=== PATIENT | female | born 1975 ===

== ENCOUNTER → 2017-01-18 | Outpatient (REF) ==
--- NOTE | 2017-01-18 13:38 | REP ---
Clinical: Pain and disability. Technique: AP, lateral, cone down views of the lumbosacral spine. Findings: Alignment and lordosis maintained. Vertebral bodies are intact. No acute fracture / compression injury or subluxation. Disc spaces appear relatively normal for age. Impression: Age-appropriate examination. Signed by Sachin Watson MD 01/18/2017 01:29 P
== END ==
LOC: M SMT 12:36
PROVIDERS: ATTEND Internal Medicine
DX: M54.9 Dorsalgia, unspecified (principal)